=== PATIENT | female | born 1985 | race Caucasian/White ===

== ENCOUNTER 2016-12-15 16:58 | Emergency (ER) | payer MEDICARE, OTHER ==
[~2016-12-15] VITALS: Ht 175.3 cm; Wt 126.0 kg
[~2016-12-15 16:58] MED LIST: AMLO10TA2 PO; MACR100C2 PO; METO50TA PO
[2016-12-15 17:11] VITALS: BP 161/108; PULSE 94; RESP 16; TEMP 99; O2SAT 97
[2016-12-15] MEDS ORDERED: LOSA25TA PO (17:43)
--- NOTE | 2016-12-15 17:44 | PD ---
HPI . breast pain Chief Complaint: Bleeding Time Seen by Provider: 17:40 Travel History International Travel<30 days: No Contact w/Intl Traveler<30days: No Traveled to known affect area: No History of Present Illness HPI Patient presents with a several week history of breast pain now bleeding from her nipple. She states that she does have an appointment to see her doctor in a week. PFSH Past Medical History Hx Anticoagulant Therapy: No Arthritis: No Asthma: Yes Blood Disorders: No Anxiety: Yes Heart Rhythm Problems: Yes Cancer: No Cardiac Catheterization: No Cardiovascular Problems: Yes High Cholesterol: No Chest Pain: Yes Congestive Heart Failure: No Cerebrovascular Accident: No Diabetes: No Diminished Hearing: No Endocrine: Yes (SOME THYROID ISSUES) Gastrointestinal Disorders: No Genitourinary: Yes (CHRONIC KIDNEY INFECTIONS) Headaches: No Hypertension: Yes Immune Disorder: No Implanted Vascular Access Dvce: No Kidney Stones: Yes Musculoskeletal: No Neurologic: Yes Psychiatric: No Reproductive: Yes (IRREGULAR PERIODS) Respiratory: Yes (ASTHMA CHILD) Immunizations Current: Yes Migraines: Yes Pneumonia: Yes Seizures: No Thyroid Disease: Yes (HYPOTHYROIDISM/NOT ON MEDICATION) Tetanus Vaccination: < 5 Years ?: Not LMP: UNKNOWN Menopausal: No : 0 Para: 0 Miscarriage: 0 Ovarian Cysts: Yes (has PCOD) Past Surgical History Abdominal Surgery: Yes (PART OF RT KIDNEY REMOVED 1997- for PCKD) Cardiac Surgery: Yes (MITRAL VALVE REPAIR) Coronary Artery Bypass Graft: Yes (CABG X1 1985 OR 1986?) Genitourinary Surgery: Yes (PARTIAL NEPHRECTOMY RIGHT, URETERS REIMPLANTED) Gynecologic Surgery: Yes (RIGHT TOP LOBE OF KIDNEY REMOVED) Valve Replacement: Yes (2 OPEN HEARTS FOR VALVE SURGERY AGE 2 months) Other Surgery: Yes (RIGHT TOP LOBE OF KIDNEY REMOVED) Family History Family Myocardial Infarction: Yes (FATHER) Family Hypercholesterolemia: Yes (FATHER) Social History Alcohol Use: No Tobacco Use: No Substance Use: No Allergies-Medications (Allergen,Severity, Reaction): Coded Allergies: Penicillin (Verified Allergy, Intermediate, HIVES, 12/15/16) Reported Meds & Prescriptions Reported Meds & Active Scripts Active Amlodipine (Amlodipine Besylate) 10 Mg Tab 10 Mg PO DAILY Reported Macrobid (Nitrofurantoin Monoh/Nitrofur Macro) 100 Mg Cap 50 Mg PO DAILY Metoprolol Tartrate 50 Mg Tab 50 Mg PO BID Review of Systems Except as stated in HPI: all other systems reviewed are Neg General / Constitutional: No: Fever, Chills Skin: Positive Breast Tenderness, Positive Other (bleeding from the left nipple ) Physical Exam Narrative GENERAL: Awake and alert and in no acute distress. SKIN: Warm and dry. BREAST: The patient has diffuse left breast tenderness but no mass palpable. No skin changes. She does have scant blood from the nipple. CARDIOVASCULAR: Regular rate and rhythm. RESPIRATORY: No accessory muscle use. MUSCULOSKELETAL: No obvious deformities. No edema. NEUROLOGICAL: Awake and alert. No obvious cranial nerve deficits. Motor grossly within normal limits. Normal speech. PSYCHIATRIC: Appropriate mood and affect; insight and judgment normal. Data Data Last Documented VS Vital Signs Date Time Temp Pulse Resp B/P Pulse Ox O2 Delivery O2 Flow Rate FiO2 12/15/16 17:23 Room Air 12/15/16 17:11 99.0 94 16 161/108 97 MDM Medical Decision Making Medical Screen Exam Complete: Yes Emergency Medical Condition: Yes Differential Diagnosis Differential diagnosis includes mastitis, fibrocystic disease, cancer Narrative Course Patient presents with left breast pain for several weeks now with bleeding from her nipple. I have advised the patient to use warm compresses, Tylenol, Advil or Aleve as needed for pain and follow-up with her primary care provider as scheduled. I have explained to the patient that she will need a mammogram which we cannot do in the emergency department. Diagnosis Primary Impression: Breast pain, left Additional Instructions: Follow-up with her primary care provider as scheduled. Warm compresses to the area. Advil or Aleve as needed for discomfort. Disposition: 01 DISCHARGE HOME Condition: Stable Ophelia Garcia MD Dec 15, 2016 17:44
== END 2016-12-15 18:05 | disposition home or self-care (01) ==
LOC: PHED 16:58
DX: N64.4 Mastodynia (principal); J45.909 Unspecified asthma, uncomplicated; F41.9 Anxiety disorder, unspecified; I10 Essential (primary) hypertension; E28.2 Polycystic ovarian syndrome; Z95.1 Presence of aortocoronary bypass graft; Z95.2 Presence of prosthetic heart valve; Z88.0 Allergy status to penicillin
CPT/HCPCS: 99283

== ENCOUNTER 2017-03-11 22:59 | Emergency (ER) | payer MEDICARE, OTHER ==
[~2017-03-11] VITALS: Ht 175.3 cm; Wt 127.3 kg
[~2017-03-11 22:59] MED LIST changes: +LOSA25TA PO; -MACR100C2 PO
[2017-03-11 23:13] VITALS: BP 196/120; PULSE 98; RESP 14; TEMP 98.6; O2SAT 98
--- NOTE | 2017-03-12 00:15 | PD ---
HPI Chief Complaint: Injury Time Seen by Provider: 00:12 Travel History International Travel<30 days: No Contact w/Intl Traveler<30days: No Traveled to known affect area: No History of Present Illness HPI The patient is a 31-year-old female that complains of right knee pain for 4 days. She states she fell onto a pit at an obstacle course which was full of foam rubber but is struggling to get out of the. She thinks she might have twisted her knee. She does not remember how she twisted her knee. She complains of joint line pain medially and laterally over the right knee. She states it is highly unlikely that she is . The patient cannot take Motrin because of renal insufficiency -- stage III. PFSH Past Medical History Hx Anticoagulant Therapy: No Arthritis: No Asthma: Yes Blood Disorders: No Anxiety: Yes Heart Rhythm Problems: Yes Cancer: No Cardiac Catheterization: No Cardiovascular Problems: Yes High Cholesterol: No Chest Pain: Yes Congestive Heart Failure: No Cerebrovascular Accident: No Diabetes: No Diminished Hearing: No Endocrine: Yes (SOME THYROID ISSUES) Gastrointestinal Disorders: No Genitourinary: Yes (CHRONIC KIDNEY INFECTIONS) Headaches: No Hypertension: Yes Immune Disorder: No Implanted Vascular Access Dvce: No Kidney Stones: Yes Musculoskeletal: No Neurologic: Yes Psychiatric: No Reproductive: Yes (IRREGULAR PERIODS) Respiratory: Yes (ASTHMA CHILD) Immunizations Current: Yes Migraines: Yes Pneumonia: Yes Seizures: No Thyroid Disease: Yes (HYPOTHYROIDISM/NOT ON MEDICATION) Tetanus Vaccination: > 5 Years Influenza Vaccination: No ?: Not Menopausal: No : 0 Para: 0 Miscarriage: 0 Ovarian Cysts: Yes (has PCOS) Past Surgical History Abdominal Surgery: Yes (PART OF RT KIDNEY REMOVED 1997- for PCKD) Cardiac Surgery: Yes (MITRAL VALVE REPAIR) Coronary Artery Bypass Graft: Yes (CABG X1 1985 OR 1986?) Genitourinary Surgery: Yes (PARTIAL NEPHRECTOMY RIGHT, URETERS REIMPLANTED) Gynecologic Surgery: Yes (RIGHT TOP LOBE OF KIDNEY REMOVED) Valve Replacement: Yes (2 OPEN HEARTS FOR VALVE SURGERY AGE 2 months) Other Surgery: Yes (RIGHT TOP LOBE OF KIDNEY REMOVED) Family History Family Myocardial Infarction: Yes (FATHER) Family Hypercholesterolemia: Yes (FATHER) Social History Alcohol Use: No Tobacco Use: No Substance Use: No Allergies-Medications (Allergen,Severity, Reaction): Coded Allergies: Penicillin (Verified Allergy, Intermediate, HIVES, 03/12/17) Toradol (Verified Adverse Reaction, Severe, 03/12/17) KIDNEY FAILURE Reported Meds & Prescriptions Reported Meds & Active Scripts Active Amlodipine (Amlodipine Besylate) 10 Mg Tab 10 Mg PO DAILY Reported Losartan (Losartan Potassium) 25 Mg Tab 25 Mg PO DAILY Metoprolol Tartrate 50 Mg Tab 50 Mg PO BID Review of Systems Except as stated in HPI: all other systems reviewed are Neg Physical Exam Narrative GENERAL: The patient is obese, alert, oriented 3 in moderate apparent distress with her right knee pain. SKIN: Focused skin assessment warm/dry. HEAD: Atraumatic. Normocephalic. EYES: Pupils equal and round. No scleral icterus. No injection or drainage. ENT: No nasal bleeding or discharge. Mucous membranes pink and moist. NECK: Trachea midline. No JVD. CARDIOVASCULAR: Regular rate and rhythm. No murmur appreciated. RESPIRATORY: No accessory muscle use. Clear to auscultation. Breath sounds equal bilaterally. GASTROINTESTINAL: Abdomen soft, non-tender, nondistended. Hepatic and splenic margins not palpable. MUSCULOSKELETAL: No obvious deformities. No clubbing. No cyanosis. No edema. The patient has joint line tenderness all around the knee. It feels like she does have some swelling in the joint. No deformity is noted. No patellar tenderness is noted. Collaterals, drawer, Jessica all intact ligaments. NEUROLOGICAL: Awake and alert. No obvious cranial nerve deficits. Motor grossly within normal limits. Normal speech. PSYCHIATRIC: Appropriate mood and affect; insight and judgment normal. Data Data Last Documented VS Vital Signs Date Time Temp Pulse Resp B/P Pulse Ox O2 Delivery O2 Flow Rate FiO2 03/11/17 23:35 98 18 97 Room Air 03/11/17 23:13 98.6 196/120 Orders Knee, Complete (4vws) (03/11/17 ) Ed Urine Pregnancytest Poc (03/11/17 23:38) [facility] Medical Decision Making Medical Screen Exam Complete: Yes Emergency Medical Condition: Yes Medical Record Reviewed: Yes Interpretation(s) The [id number] urine test is negative. X-rays of the right knee show knee effusion but no fracture. Differential Diagnosis Cartilage tear, ligament tear, fracture knee, contusion knee joint effusion knee Narrative Course The patient has an effusion of the right knee. I find no evidence for ligament instability but she may have a cartilage tear or some other internal derangement. Plan: She is to follow-up with an orthopedic physician and is given crutches and told to rest and take the weight off the knee. Because the patient cannot take nonsteroidal anti-inflammatories because of her renal insufficiency she will be given Lortab 5 for pain. She will be given crutches and an [place] bandage. Diagnosis Primary Impression: Effusion of knee joint right Additional Instructions: As we discussed, take the weight off the right knee as best you can. This will probably mean resting in bed with the knee slightly flexed. Follow-up with orthopedics, call tomorrow to set up an appointment. Med/Other Pt SpecificInfo: Prescription(s) given Scripts Hydrocodone-Acetaminophen (Lortab)7.5-325 Mg Tab1 Tab PO Q4H PRN (PAIN) #30 TAB Ref 0 Prov:Luis Enrique Francois MD 03/12/17 Disposition: 01 DISCHARGE HOME Condition: Stable Luis Enrique Francois MD Mar 12, 2017 00:15
--- NOTE | 2017-03-12 00:55 | RADRPT ---
EXAM DATE/TIME: 03/12/2017 00:16 [facility] COMPARISON: No previous studies available for comparison. INDICATIONS : Right knee pain after fall and twisting knee on trampoline. MEDICAL HISTORY : None. SURGICAL HISTORY : None. ENCOUNTER: Initial ACUITY: 4 - 6 days PAIN SCORE: 7/10 LOCATION: Right knee FINDINGS: Four view examination of the right knee demonstrates no evidence of fracture or dislocation. Bony mi neralization is normal. The articular surfaces are intact. There is fullness in the suprapatellar r egion suggesting effusion. No radiopaque foreign body seen. CONCLUSION: Probable knee effusion. No fracture seen. Gilberto Turner MD on March 12, 2017 at 0:52 Board Certified Radiologist. This report was verified electronically.
[2017-03-12] MEDS ORDERED: HYDR-3534 PO (01:03)
[2017-03-12] MEDS ORDERED: ACETAMINOPHEN/HYDROcodone 325 MG/7.5 MG TAB PO ONE (01:15)
== END 2017-03-12 01:49 | disposition home or self-care (01) ==
LOC: PHED 22:59
DX: M25.461 Effusion, right knee (principal); N28.9 Disorder of kidney and ureter, unspecified; I10 Essential (primary) hypertension; E03.9 Hypothyroidism, unspecified
CPT/HCPCS: 73564; 84703; 99283

== ENCOUNTER 2017-06-15 17:45 | Emergency (ER) | payer MEDICARE, OTHER ==
[~2017-06-15] VITALS: Ht 175.3 cm; Wt 129.0 kg
[~2017-06-15 17:45] MED LIST changes: +HYDR-3534 PO
[2017-06-15 18:10] VITALS: BP 206/128; PULSE 97; RESP 16; TEMP 99; O2SAT 99
[2017-06-15 18:15] LABS: BLOOD, URINE TRACE (NEG); GLUCOSE,URINE NEG (NEG); KETONE, URINE NEG (NEG); NITRITE,URINE NEG (NEG)
[2017-06-15 18:20] LABS: URINE COLOR YELLOW (YELLW/STRAW)
[2017-06-15 18:21] LABS: BACTERIA, URINE FEW /hpf; COMMENT (UR) CULTURE INDICATED; CULTURE IF INDICATED CULTURE INDICATED; RBC, URINE 0-3 /hpf (0-3); SQUAMOUS EPITHELIAL CELL URINE 0-5 /hpf (0-5)
[2017-06-15] MEDS ORDERED: CIPR500T2 PO (19:07)
[2017-06-15] MEDS ORDERED: PHEN0.4T PO (19:07)
[2017-06-15] MEDS ORDERED: ZOFR4TAB PO (19:07)
[2017-06-15] MEDS ORDERED: CEPH-460 PO (19:09)
--- NOTE | 2017-06-15 19:09 | PD ---
HPI Chief Complaint: Complaint Time Seen by Provider: 18:51 Travel History International Travel<30 days: No Contact w/Intl Traveler<30days: No Traveled to known affect area: No History of Present Illness HPI Patient 31-year-old female with a history of polycystic kidney disease polycystic ovary disease presents emergency department for evaluation of left flank pain and dysuria for the past few days which is gradually worsening, not associated with any fevers nausea vomiting diarrhea or constipation. PFSH Past Medical History Hx Anticoagulant Therapy: No Arthritis: No Asthma: Yes Blood Disorders: No Anxiety: Yes Heart Rhythm Problems: Yes Cancer: No Cardiac Catheterization: No Cardiovascular Problems: Yes High Cholesterol: No Chest Pain: Yes Congestive Heart Failure: No Cerebrovascular Accident: No Diabetes: No Diminished Hearing: No Endocrine: Yes (SOME THYROID ISSUES) Gastrointestinal Disorders: No Genitourinary: Yes (CHRONIC KIDNEY INFECTIONS) Headaches: No Hypertension: Yes Immune Disorder: No Implanted Vascular Access Dvce: No Kidney Stones: Yes Musculoskeletal: No Neurologic: Yes Psychiatric: No Reproductive: Yes (IRREGULAR PERIODS) Respiratory: Yes (ASTHMA CHILD) Immunizations Current: Yes Migraines: Yes Pneumonia: Yes Seizures: No Thyroid Disease: Yes (HYPOTHYROIDISM/NOT ON MEDICATION) ?: Not Menopausal: No : 0 Para: 0 Miscarriage: 0 Ovarian Cysts: Yes (has PCOS) Past Surgical History Abdominal Surgery: Yes (PART OF RT KIDNEY REMOVED 1997- for PCKD) Cardiac Surgery: Yes (MITRAL VALVE REPAIR) Coronary Artery Bypass Graft: Yes (CABG X1 1985 OR 1986?) Genitourinary Surgery: Yes (PARTIAL NEPHRECTOMY RIGHT, URETERS REIMPLANTED) Gynecologic Surgery: Yes (RIGHT TOP LOBE OF KIDNEY REMOVED) Valve Replacement: Yes (2 OPEN HEARTS FOR VALVE SURGERY AGE 2 months) Other Surgery: Yes (RIGHT TOP LOBE OF KIDNEY REMOVED) Family History Family Myocardial Infarction: Yes (FATHER) Family Hypercholesterolemia: Yes (FATHER) Social History Alcohol Use: No Tobacco Use: No Substance Use: No Allergies-Medications (Allergen,Severity, Reaction): Coded Allergies: penicillin G (Unverified Allergy, Intermediate, HIVES, 06/15/17) ketorolac (Unverified Adverse Reaction, Severe, 06/15/17) KIDNEY FAILURE Reported Meds & Prescriptions Reported Meds & Active Scripts Active Keflex (Cephalexin) 500 Mg Capsule 500 Mg PO Q6H 7 Days Zofran (Ondansetron HCl) 4 Mg Tab 4 Mg PO Q6HR PRN Pyridium (Phenazopyridine HCl) 100 Mg Tab 100 Mg PO Q8H PRN Lortab (Hydrocodone-Acetaminophen) 7.5-325 Mg Tab 1 Tab PO Q4H PRN Amlodipine (Amlodipine Besylate) 10 Mg Tab 10 Mg PO DAILY Reported Losartan (Losartan Potassium) 25 Mg Tab 25 Mg PO DAILY Metoprolol Tartrate 50 Mg Tab 50 Mg PO BID Review of Systems Except as stated in HPI: all other systems reviewed are Neg Physical Exam Narrative GENERAL: Well-developed well-nourished, obese in no distress. SKIN: Focused skin assessment warm/dry. HEAD: Atraumatic. Normocephalic. EYES: Pupils equal and round. No scleral icterus. No injection or drainage. ENT: No nasal bleeding or discharge. Mucous membranes pink and moist. NECK: Trachea midline. No JVD. CARDIOVASCULAR: Regular rate and rhythm. No murmur appreciated. RESPIRATORY: No accessory muscle use. Clear to auscultation. Breath sounds equal bilaterally. GASTROINTESTINAL: Abdomen soft, non-tender, nondistended. Hepatic and splenic margins not palpable. Positive left-sided CVA tenderness. MUSCULOSKELETAL: No obvious deformities. No clubbing. No cyanosis. No edema. NEUROLOGICAL: Awake and alert. No obvious cranial nerve deficits. Motor grossly within normal limits. Normal speech. PSYCHIATRIC: Appropriate mood and affect; insight and judgment normal. Data Data Last Documented VS Vital Signs Date Time Temp Pulse Resp B/P (MAP) Pulse Ox O2 Delivery O2 Flow Rate FiO2 06/15/17 19:35 93 14 188/110 (136) 98 06/15/17 18:10 99.0 Orders Orders Urinalysis - C+S If Indicated (06/15/17 17:49) Ed Urine Pregnancytest Poc (06/15/17 17:49) Urine Culture (06/15/17 17:18) Labs Laboratory Tests Test 06/15/17 17:18 Urine Color YELLOW Urine Turbidity CLEAR Urine pH 6.0 Urine Specific [place] 1.013 Urine Protein 100 mg/dL Urine Glucose (UA) NEG mg/dL Urine Ketones NEG mg/dL Urine Occult Blood TRACE Urine Nitrite NEG Urine Bilirubin NEG Urine Leukocyte Esterase TRACE Urine RBC 0-3 /hpf Urine WBC 9-14 /hpf Urine WBC Clumps FEW Urine Squamous Epithelial Cells 0-5 /hpf Urine Bacteria FEW /hpf Microscopic Urinalysis Comment CULTURE INDICATED MDM Medical Decision Making Medical Screen Exam Complete: Yes Emergency Medical Condition: Yes Differential Diagnosis UTI, pyelonephritis, sepsis unlikely. Narrative Course Patient roomed in emergency department, has pyelonephritis by physical exam and UA. Vital signs are reassuring. No indication further workup as the patient appears quite well in no distress. We'll place time. Antibiotic's Pyridium at her request. Zofran. Discussed signs symptoms that should prompt return to ED , she is stable for discharge. Diagnosis Primary Impression: Pyelonephritis Med/Other Pt SpecificInfo: Prescription(s) given Scripts Cephalexin (Keflex) 500 Mg Capsule 500 MG PO Q6H for Infection for 7 Days, #28 CAP 0 Refills Prov: Christian Stearns MD 06/15/17 Ondansetron (Zofran) 4 Mg Tab 4 MG PO Q6HR Y for NAUSEA OR VOMITING, #20 TAB 0 Refills Prov: Christian Stearns MD 06/15/17 Phenazopyridine (Pyridium) 100 Mg Tab 100 MG PO Q8H Y for DYSURIA, #20 TAB 0 Refills Prov: Christian Stearns MD 06/15/17 Disposition: 01 DISCHARGE HOME Condition: Stable Christian Stearns MD Jun 15, 2017 19:09
[2017-06-15 19:35] VITALS: BP 188/110
== END 2017-06-15 19:39 | disposition home or self-care (01) ==
LOC: PHED 17:45
DX: N12 Tubulo-interstitial nephritis, not specified as acute or chronic (principal); E03.9 Hypothyroidism, unspecified; E28.2 Polycystic ovarian syndrome; I10 Essential (primary) hypertension; Z88.0 Allergy status to penicillin; Z95.2 Presence of prosthetic heart valve; Z95.1 Presence of aortocoronary bypass graft; Q61.3 Polycystic kidney, unspecified
CPT/HCPCS: 81001; 84703; 87086; 99284

== ENCOUNTER 2018-01-02 10:26 | Observation (INO) | payer MEDICARE, OTHER ==
[~2018-01-02] VITALS: Ht 175.3 cm; Wt 131.8 kg
[2018-01-02] VITALS (13 sets, daily range): BP systolic 147–238; BP diastolic 76–111; PULSE 67–120; RESP 14–21; TEMP 97.3–99; O2SAT 93–97
[2018-01-02] MEDS: METOPROLOL TARTRATE 100 MG TAB PO SCH
[~2018-01-02 10:26] MED LIST changes: +CEPH-460 PO; +PHEN0.4T PO; +ZOFR4TAB PO
[2018-01-02] MEDS ORDERED: METO100T PO (10:58)
[2018-01-02] MEDS ORDERED: LOSA50TA PO (10:58)
--- NOTE | 2018-01-02 11:06 | PD ---
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 Said pain is pressure like and has left arm numbness associated with it. Pain is constant, nonradiating and associated with nausea, sob, vomiting. No exacerbating or alleviating factors. 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 Granado and had a stress test 6 months ago that showed some problem with her conduction and she is going to get follow up with that. Said she was told she had heart attack in 2016 but never had a cardiac cath. Took her blood pressure medication this morning but BP is still very high. Denies any abdominal pain, focal weakness or numbness, fever. Occasional cough. PFSH Past Medical History Hx Anticoagulant Therapy: No Arthritis: No Asthma: Yes Blood Disorders: No Anxiety: Yes Heart Rhythm Problems: Yes Cancer: No Cardiac Catheterization: No Cardiovascular Problems: Yes High Cholesterol: No Chest Pain: Yes Congestive Heart Failure: No Cerebrovascular Accident: No Diabetes: No Diminished Hearing: No Endocrine: Yes (SOME THYROID ISSUES) Gastrointestinal Disorders: No Genitourinary: Yes (CHRONIC KIDNEY INFECTIONS) Headaches: No Hypertension: Yes Immune Disorder: No Implanted Vascular Access Dvce: No Kidney Stones: Yes Musculoskeletal: No Neurologic: Yes Psychiatric: No Reproductive: Yes (IRREGULAR PERIODS) Respiratory: Yes (ASTHMA CHILD) Immunizations Current: Yes Migraines: Yes Pneumonia: Yes Seizures: No Thyroid Disease: Yes (HYPOTHYROIDISM/NOT ON MEDICATION) ?: Not LMP: 10/2017 Menopausal: No : 0 Para: 0 Miscarriage: 0 Ovarian Cysts: Yes (has PCOS) Past Surgical History Abdominal Surgery: Yes (PART OF RT KIDNEY REMOVED 1997- for PCKD) Cardiac Surgery: Yes (MITRAL VALVE REPAIR) Coronary Artery Bypass Graft: Yes (CABG X1 1985 OR 1986?) Genitourinary Surgery: Yes (PARTIAL NEPHRECTOMY RIGHT, URETERS REIMPLANTED) Gynecologic Surgery: Yes (RIGHT TOP LOBE OF KIDNEY REMOVED) Valve Replacement: Yes (2 OPEN HEARTS FOR VALVE SURGERY AGE 2 months) Other Surgery: Yes (RIGHT TOP LOBE OF KIDNEY REMOVED) Family History Family Hypercholesterolemia: Yes (FATHER) Social History Alcohol Use: No Tobacco Use: No Substance Use: No Allergies-Medications (Allergen,Severity, Reaction): Coded Allergies: penicillin G (Unverified Allergy, Intermediate, HIVES, 01/02/18) ketorolac (Unverified Adverse Reaction, Severe, 01/02/18) KIDNEY FAILURE Reported Meds & Prescriptions Reported Meds & Active Scripts Active Amlodipine (Amlodipine Besylate) 10 Mg Tab 10 Mg PO DAILY Reported Losartan (Losartan Potassium) 50 Mg Tab 50 Mg PO DAILY Metoprolol Tartrate 100 Mg Tab 100 Mg PO BID Review of Systems Except as stated in HPI: all other systems reviewed are Neg Physical Exam Narrative GENERAL: 32yo F in mild distress. SKIN: Focused skin assessment warm/dry. HEAD: Atraumatic. Normocephalic. EYES: Pupils equal and round. No scleral icterus. No injection or drainage. ENT: No nasal bleeding or discharge. Mucous membranes pink and moist. NECK: Trachea midline. No JVD. CARDIOVASCULAR: Regular rate and rhythm. No murmur appreciated. RESPIRATORY: No accessory muscle use. Mild end expiratory wheezing bilaterally. GASTROINTESTINAL: Abdomen soft, non-tender, nondistended. Hepatic and splenic margins not palpable. MUSCULOSKELETAL: No obvious deformities. No clubbing. No cyanosis. No edema. NEUROLOGICAL: Awake and alert. No obvious cranial nerve deficits. Motor grossly within normal limits. Normal speech. PSYCHIATRIC: Appropriate mood and affect; insight and judgment normal. Data Data Last Documented VS Vital Signs Date Time Temp Pulse Resp B/P (MAP) Pulse Ox O2 Delivery O2 Flow Rate FiO2 01/02/18 14:13 106 15 175/76 (109) 96 Room Air 01/02/18 12:07 2.00 01/02/18 10:44 98.5 Orders Orders Basic Metabolic Panel (Bmp) (01/02/18 10:55) Complete Blood Count With Diff (01/02/18 10:55) D-Dimer (01/02/18 10:55) Magnesium (Mg) (01/02/18 10:55) Prothrombin Time / Inr (Pt) (01/02/18 10:55) Act Partial Throm Time (Ptt) (01/02/18 10:55) Troponin I (01/02/18 10:55) Chest, Single Ap (01/02/18 10:55) Nitroglycerin Sl (Nitrostat Sl) (01/02/18 11:00) Ondansetron Inj (Zofran Inj) (01/02/18 11:45) Prednisone (Deltasone) (01/02/18 13:00) Albuterol-Ipratropium Neb (Duoneb Neb) (01/02/18 13:00) Morphine Inj (Morphine Inj) (01/02/18 13:15) Admit Order (Ed Use Only) (01/02/18 14:15) Labs Laboratory Tests Test 01/02/18 11:15 White Blood Count 8.6 TH/MM3 Red Blood Count 4.87 MIL/MM3 Hemoglobin 13.9 GM/DL Hematocrit 41.2 % Mean Corpuscular Volume 84.7 FL Mean Corpuscular Hemoglobin 28.5 PG Mean Corpuscular Hemoglobin Concent 33.7 % Red Cell Distribution Width 14.5 % Platelet Count 117 TH/MM3 Mean Platelet Volume 9.2 FL Neutrophils (%) (Auto) 75.1 % Lymphocytes (%) (Auto) 16.9 % Monocytes (%) (Auto) 6.6 % Eosinophils (%) (Auto) 1.0 % Basophils (%) (Auto) 0.4 % Neutrophils # (Auto) 6.5 TH/MM3 Lymphocytes # (Auto) 1.5 TH/MM3 Monocytes # (Auto) 0.6 TH/MM3 Eosinophils # (Auto) 0.1 TH/MM3 Basophils # (Auto) 0.0 TH/MM3 CBC Comment DIFF FINAL Differential Comment Prothrombin Time 10.2 SEC Prothromb Time International Ratio 1.0 RATIO Activated Partial Thromboplast Time 26.6 SEC D-Dimer Quantitative (PE/DVT) 0.21 MG/L FEU Blood Urea Nitrogen 20 MG/DL Creatinine 1.62 MG/DL Random Glucose 121 MG/DL Calcium Level 8.9 MG/DL Magnesium Level 1.9 MG/DL Sodium Level 143 MEQ/L Potassium Level 3.8 MEQ/L Chloride Level 109 MEQ/L Carbon Dioxide Level 25.5 MEQ/L Anion Gap 9 MEQ/L Estimat Glomerular Filtration Rate 37 ML/MIN Troponin I LESS THAN 0.02 NG/ML MDM Medical Decision Making Medical Screen Exam Complete: Yes Emergency Medical Condition: Yes Interpretation(s) EKG: Sinus tachycardia at 112bpm. RAD. Wide QRS. 1st AV block. Differential Diagnosis ACS vs. pneumonia vs. musculoskeletal pain Narrative Course 32yo F with left sided chest pain that started an hour ago. Labs reviewed, no leukocytosis. H/H normal. Mild thrombocytopenia at 117,000 which is at baseline. Troponin negative. BUN/creatinine mildly elevated from baseline at 20/1.62 from 17.20. Pt said she has CKD stage 3 so this is likely her baseline. CXR negative. D-dimer negative. Pt was initially very hypertensive but BP improved with nitroglycerin. Pt describes it as a pressure and still a 5 out of 10 right now. Discussed with pt's systems analyst Dr. rGanado who agrees with observation in chest pain center for serial EKG and cardiac enzymes and to call him for any questions or updates. Since pt is still in pain and pressure has improved, will give morphine 2gm IV and reevaluate. Pt also with end expiratory wheezing and a childhood history of asthma so given duonebs and prednisone. Pt feel better. Pt reevaluated at bedside and said she is no longer sob. Pt is still having pressure in chest. Diagnosis Primary Impression: Chest pain Qualified Codes: R07.9 - Chest pain, unspecified Additional Impression: Asthma exacerbation Qualified Codes: J45.901 - Unspecified asthma with (acute) exacerbation Admitting Information Admitting Physician Requests: Observation Med/Other Pt SpecificInfo: Prescription(s) given Scripts Albuterol 18 GM Inh (Ventolin Hfa 18 GM Inh) 90 Mcg/Act Aer 2 PUFF INH Q4H Y for SHORTNESS OF BREATH, #1 INHALER 0 Refills Prov: Dipti Bella DO 01/02/18 Prednisone (Prednisone) 20 Mg Tab 40 MG PO DAILY for 5 Days, #10 TAB 0 Refills Take 40 mg (2 tablets) daily for 5 days Prov: Dipti Bella DO 01/02/18 Dipti Bella DO Jan 02, 2018 11:06
[2018-01-02] MEDS: NITROGLYCERIN 0.4 MG SL 25 TABS/BTL SL SCH ×3 (11:10→11:38)
[2018-01-02] MEDS ORDERED: ONDANSETRON HCL 4 MG/2 ML VIAL IV PUSH ONE (11:45)
--- NOTE | 2018-01-02 11:47 | RADRPT ---
EXAM DATE/TIME: 01/02/2018 11:22 [place] COMPARISON: CHEST SINGLE AP, July 26, 2016, 9:53. INDICATIONS : Chest pressure and pain radiating down left arm with vomiting. MEDICAL HISTORY : Childhood asthma. Leaky mitral valve. SURGICAL HISTORY : Surgical repair for childhood heart defect. ENCOUNTER: Initial ACUITY: 1 day PAIN SCORE: 6/10 LOCATION: Left chest FINDINGS: A single view of the chest demonstrates the lungs to be symmetrically aerated without evidence of mas s, infiltrate or effusion. The cardiomediastinal contours are unremarkable. Osseous structures are intact. CONCLUSION: No acute disease. Te Cunningham MD on January 02, 2018 at 11:44 Board Certified Radiologist. This report was verified electronically.
[2018-01-02 12:01] LABS: WHITE BLOOD COUNT 8.6 TH/MM3 (4.0-11.0)
[2018-01-02 12:02] LABS: AUTOMATED NEUTROPHIL # 6.5 TH/MM3 (1.8-7.7); BASOPHIL % 0.4 % (0.0-2.0); EOSINOPHIL # 0.1 TH/MM3 (0-0.4); HEMATOCRIT 41.2 % (35.0-46.0); HEMOGLOBIN 13.9 GM/DL (11.6-15.3); LYMPH % 16.9 % (9.0-44.0); LYMPHOCYTE # 1.5 TH/MM3 (1.0-4.8); MEAN CELL VOLUME 84.7 FL (80.0-100.0); MEAN CORPUSCULAR HEMOGLOBIN 28.5 PG (27.0-34.0); MEAN CORPUSCULAR HGB CONC 33.7 % (32.0-36.0); MEAN PLATELET VOLUME 9.2 FL (7.0-11.0); MONO % 6.6 % (0.0-8.0); MONOCYTE # 0.6 TH/MM3 (0-0.9); NEUT % 75.1 % (16.0-70.0); PLATELET COUNT 117 TH/MM3 (150-450); RED BLOOD COUNT 4.87 MIL/MM3 (4.00-5.30); RED CELL DISTRIBUTION WIDTH 14.5 % (11.6-17.2)
[2018-01-02 12:13] LABS: PROTHROMBIN TIME - PATIENT 10.2 SEC (9.8-11.6)
[2018-01-02 12:15] LABS: D-DIMER 0.21 MG/L FEU (0.00-0.50)
[2018-01-02 12:31] LABS: BICARBONATE 25.5 MEQ/L (21.0-32.0); BLOOD UREA NITROGEN 20 MG/DL (7-18); CALCIUM 8.9 MG/DL (8.5-10.1); CHLORIDE 109 MEQ/L (98-107); CREATININE 1.62 MG/DL (0.50-1.00); GLOMERULAR FILTRATION RATE 37 ML/MIN (>89); GLUCOSE,RANDOM 121 MG/DL (74-106); MAGNESIUM 1.9 MG/DL (1.5-2.5); SODIUM (NA) 143 MEQ/L (136-145)
[2018-01-02 12:35] LABS: TROPONIN I LESS THAN 0.02 NG/ML (0.02-0.05)
[2018-01-02] MEDS ORDERED: predniSONE 50 MG TAB PO ONE (13:00)
[2018-01-02] MEDS ORDERED: MORPHINE SULFATE 2 MG/ML SYRINGE IV PUSH ONE ×2 (13:15→17:30)
[2018-01-02] MEDS: RESP: ALBUTEROL 2.5 MG/IPRATROPIUM 0.5 MG NEB (SCH) INH (13:16)
[2018-01-02] MEDS ORDERED: PRED20 PO (14:19)
[2018-01-02] MEDS ORDERED: VENTAER INH (14:19)
[2018-01-02] MEDS ORDERED: ACETAMINOPHEN 500 MG CPLT PO PRN (15:00)
[2018-01-02] MEDS ORDERED: ONDANSETRON HCL 4 MG/2 ML VIAL IV PUSH PRN (15:00)
[2018-01-02] MEDS ORDERED: NITROGLYCERIN 0.4 MG SL 25 TABS/BTL SL PRN (15:00)
[2018-01-02] MEDS ORDERED: SODIUM CHLORIDE 0.9% FLUSH 10 ML FLUSH IV FLUSH PRN (15:00)
--- NOTE | 2018-01-02 15:24 | HHI.HP ---
HPI Primary Care Physician Austen Callahan M.D. Chief Complaint Chest pressure History of Present Illness 32 year old female with history of congenital heart mitral valve repair as presents to ER for further evaulation of chest pain. Onset this afternoon. Location substernal. Characterized as pressure. No radiation. Associated symptoms included nausea, 1 episode vomiting, shortness of breath, and diaphoresis. No known precipitating or relieving factors. Endorses similar episodes over the last 2 years approx. 8 times. Follows with her chief of pediatric urology in [place], [place] closely. Endorses recent nuclear testing within the last year reported to be unremarkable. Scheduled for CT coronary angiogram Thursday01/08/18 scheduled by her deflector operator in [place]. Endorses wearing a 30 day event monitor within the last year. No cardiac arrhythmias identified. Review of Systems General: No fatigue,weakness, fever, chills, recent illness, or change in appetite. Has been her general state of health. HEENT: No VILLA, no vision changes, no nasal congestion or drainage, no dysphasia CV: As stated above. No current chest pain or pressure. No palpitations or dizziness. RESP: No SOB, cough, wheeze. History of asthma as a child. GI: Nausea and vomiting resolved. No bowel changes. Unintentional weight gain of #90 in past year. : No dysuria, urgency, frequency. Chronic kidney disease, follows with a warper tender closely. EXT: No lower leg edema, no paraesthesias MS: No discomfort or change in ROM NEURO: No difficulty with balance, LOC, motor/sensory deficits PSYCH: No anxiety, depression SKIN: No rashes, no concerning lesions Past Family Social History Allergies: Coded Allergies: penicillin G (Unverified Allergy, Intermediate, HIVES, 01/02/18) ketorolac (Unverified Adverse Reaction, Severe, 01/02/18) KIDNEY FAILURE Past Medical History Chronic kidney disease, polycystic ovarian disease, borderline diabetic, asthma (during childhood) Past Surgical History Mitral valve repair Reported Medications Reported Meds & Active Scripts Active Ventolin Hfa 18 GM Inh (Albuterol Sulfate) 90 Mcg/Act Aer 2 Puff INH Q4H PRN Prednisone 20 Mg Tab 40 Mg PO DAILY 5 Days Take 40 mg (2 tablets) daily for 5 days Amlodipine (Amlodipine Besylate) 10 Mg Tab 10 Mg PO DAILY Losartan (Losartan Potassium) 50 Mg Tab 50 Mg PO DAILY Metoprolol Tartrate 100 Mg Tab 100 Mg PO BID Active Ordered Medications Current Medications Medications (Trade) Dose Ordered Sig/Steve Route Start Time Stop Time Status Last Admin (NS Flush) 2 ml UNSCH PRN IV FLUSH 01/02/18 15:00 (NS Flush) 2 ml BID IV FLUSH 01/02/18 21:00 (Tylenol) 500 mg Q4H PRN PO 01/02/18 15:00 (Zofran Inj) 4 mg Q6H PRN IV PUSH 01/02/18 15:00 (Nitrostat Sl) 0.4 mg Q5M PRN SL 01/02/18 15:00 (Aspirin) 325 mg DAILY PO 01/03/18 09:00 Family History Positive for early onset cardiovascular disease. Father age 48 myocardial infarction. Social History No known coronary artery disease, hypertension, or hyperlipidemia. Reports being a borderline diabetic. Lifelong nonsmoker. Engaged. Disabled. [facility] reported to be normal. Scheduled for CT coronary angiogram 01/08/18. Continue to follow her chief of pediatric urology in [place], [place]. Never had cardiac catheterization as an adult. Physical Exam Vital Signs Vital Signs Date Time Temp Pulse Resp B/P (MAP) Pulse Ox O2 Delivery O2 Flow Rate FiO2 01/02/18 14:13 106 15 175/76 (109) 96 Room Air 01/02/18 12:07 96 Nasal Cannula 2.00 01/02/18 12:06 94 147/83 (104) 01/02/18 11:41 106 20 151/81 (104) 94 Room Air 01/02/18 11:15 100 184/96 (125) 01/02/18 10:44 98.5 111 21 238/106 (150) 96 Nasal Cannula 2.00 01/02/18 10:28 99.0 120 20 184/111 (135) 97 Physical Exam GENERAL: Alert WN, WD, NAD, pleasant, obese female HEAD: NC, AT EYES: Sclera clear, conjunctiva without injection, pupils equal and round ENT: Mucous membranes pink and moist NECK: Supple, no masses, trachea midline CV: RRR, 1/6 systolic murmur, heard best during expiration, no rub, no gallop, no JVD, S1-S2 no S3-S4. No carotid or femoral bruits. Chest: Nontender with palpation RESP: Inspiratory and expiratory wheeze, rhonchi throughout. symmetrical chest rise, nonlabored, able to speak in full sentences ABD: Soft, NT, ND, no masses, positive bowel tones EXT: Pulses +2x4, no dependent edema MS: Normal tone x4 extremities, nontender, no obvious deformities, full range of motion NEURO: CN II through CN XII grossly intact, motor strength 5/5 PSYCH: A+O x3, pleasant affect, appropriate speech, mood, insight and judgment SKIN: Normal turgor, normal texture, no lesions, no rashes, tattoos Laboratory Laboratory Tests Test 01/02/18 11:15 White Blood Count 8.6 Red Blood Count 4.87 Hemoglobin 13.9 Hematocrit 41.2 Mean Corpuscular Volume 84.7 Mean Corpuscular Hemoglobin 28.5 Mean Corpuscular Hemoglobin Concent 33.7 Red Cell Distribution Width 14.5 Platelet Count 117 Mean Platelet Volume 9.2 Neutrophils (%) (Auto) 75.1 Lymphocytes (%) (Auto) 16.9 Monocytes (%) (Auto) 6.6 Eosinophils (%) (Auto) 1.0 Basophils (%) (Auto) 0.4 Neutrophils # (Auto) 6.5 Lymphocytes # (Auto) 1.5 Monocytes # (Auto) 0.6 Eosinophils # (Auto) 0.1 Basophils # (Auto) 0.0 CBC Comment DIFF FINAL Differential Comment Prothrombin Time 10.2 Prothromb Time International Ratio 1.0 Activated Partial Thromboplast Time 26.6 D-Dimer Quantitative (PE/DVT) 0.21 Blood Urea Nitrogen 20 Creatinine 1.62 Random Glucose 121 Calcium Level 8.9 Magnesium Level 1.9 Sodium Level 143 Potassium Level 3.8 Chloride Level 109 Carbon Dioxide Level 25.5 Anion Gap 9 Estimat Glomerular Filtration Rate 37 Troponin I LESS THAN 0.02 Result Diagram: 01/02/18 1115 01/02/18 1115 Imaging Last 48 hours Impressions Chest X-Ray 01/02/18 1055 Signed Impressions: Service Date/Time: Tuesday, January 02, 2018 11:22 - CONCLUSION: No acute disease. Te Cunningham MD Course EKG NSR, left axis, R BBB, diffuse T wave changes (T waves changes seen on previous EKG records) Caprini VTE Risk Assessment Caprini VTE Risk Assessment: No/Low Risk (score <= 1) Caprini Risk Assessment Model Point Value = 1 Point Value = 2 Point Value = 3 Point Value = 5 Age 41-60 Minor surgery BMI > 25 kg/m2 Swollen legs Varicose veins or History of unexplained or recurrent spontaneous Oral contraceptives or hormone replacement Sepsis (< 1 month) Serious lung disease, including pneumonia (< 1 month) Abnormal pulmonary function Acute myocardial infarction Congestive heart failure (< 1 month) History of inflammatory bowel disease Medical patient at bed rest Age 61-74 Arthroscopic surgery Major open surgery (> 45 min) Laparoscopic surgery (> 45 min) Malignancy Confined to bed (> 72 hours) Immobilizing plaster cast Central venous access Age >= 75 History of VTE Family history of VTE Factor V Leiden Prothrombin [id number] Lupus anticoagulant Anticardiolipin antibodies Elevated serum homocysteine Heparin-induced thrombocytopenia Other congenital or acquired thrombophilia Stroke (< 1 month) Elective arthroplasty Hip, pelvis, or leg fracture Acute spinal cord injury (< 1 month) Prophylaxis Regimen Total Risk Factor Score Risk Level Prophylaxis Regimen 0-1 Low Early ambulation 2 Moderate Order ONE of the following: *Sequential Compression Device (SCD) *Heparin 5000 units SQ BID 3-4 Higher Order ONE of the following medications: *Heparin 5000 units SQ TID *Enoxaparin/Lovenox 40 mg SQ daily (WT < 150 kg, CrCl > 30 mL/min) *Enoxaparin/Lovenox 30 mg SQ daily (WT < 150 kg, CrCl > 10-29 mL/min) *Enoxaparin/Lovenox 30 mg SQ BID (WT < 150 kg, CrCl > 30 mL/min) AND/OR *Sequential Compression Device (SCD) 5 or more Highest Order ONE of the following medications: *Heparin 5000 units SQ TID (Preferred with Epidurals) *Enoxaparin/Lovenox 40 mg SQ daily (WT < 150 kg, CrCl > 30 mL/min) *Enoxaparin/Lovenox 30 mg SQ daily (WT < 150 kg, CrCl > 10-29 mL/min) *Enoxaparin/Lovenox 30 mg SQ BID (WT < 150 kg, CrCl > 30 mL/min) AND *Sequential Compression Device (SCD) Assessment and Plan Assessment and Plan #1 Atypical chest pain-admitted to chest pain center. Monitor overnight. Instructed to notify RN for any further pain episodes in an attempt to identify an arrhythmia. Discussed likely will discharge in a.m. and follow-up with her deflector operator for CT coronary angiogram. Due to chronic renal insufficiency, will require IV fluids pre-and post testing and this testing already scheduled. #2 History of chronic renal insufficiency-follow up with warper tender as previously instructed #3 History of hypertension-continue amlodipine and losartan, clonidine 0.1 mg q6h PRN Vicki Kwok Jan 02, 2018 15:24
[2018-01-02 17:03] LABS: TROPONIN I LESS THAN 0.02 NG/ML (0.02-0.05)
[2018-01-02] MEDS ORDERED: cloNIDine HCL 0.1 MG TAB PO PRN (17:30)
[2018-01-02] MEDS ORDERED: METOPROLOL TARTRATE 100 MG TAB PO ONE (17:30)
[2018-01-02] MEDS ORDERED: cloNIDine HCL 0.1 MG TAB PO ONE (17:30)
[2018-01-02 19:31] LABS: TROPONIN I LESS THAN 0.02 NG/ML (0.02-0.05)
[2018-01-02] MEDS: SODIUM CHLORIDE 0.9% FLUSH 10 ML FLUSH IV FLUSH SCH (21:00)
[2018-01-03 00:23] VITALS: PULSE 68
[2018-01-03 04:45] VITALS: BP 121/68; PULSE 77; RESP 18; TEMP 97.8; O2SAT 92
[2018-01-03 07:04] VITALS: BP 134/78; PULSE 73; RESP 18; TEMP 97; O2SAT 92
[2018-01-03 07:25] VITALS: O2SAT 94
[2018-01-03] MEDS: METOPROLOL TARTRATE 100 MG TAB PO SCH (09:00)
[2018-01-03] MEDS ORDERED: ASPIRIN 325 MG TAB PO SCH (09:00)
[2018-01-03] MEDS ORDERED: LOSARTAN 50 MG TAB PO SCH (09:00)
[2018-01-03] MEDS: SODIUM CHLORIDE 0.9% FLUSH 10 ML FLUSH IV FLUSH SCH (09:01)
[2018-01-03] MEDS ORDERED: VENTAER INH (09:28)
--- NOTE | 2018-01-03 09:30 | HHI.DCPOC ---
Discharge Care Plan Diagnosis: (1) Atypical chest pain (2) History of congenital anomaly of heart Goals to Promote Your Health * To prevent worsening of your condition and complications * To maintain your health at the optimal level Directions to Meet Your Goals Take your medications as prescribed Follow your dietary instruction Follow activity as directed Keep your appointments as scheduled Take your immunizations and boosters as scheduled If your symptoms worsen call your PCP, if no PCP go to Urgent Care Center or Emergency Room Smoking is Dangerous to Your Health. Avoid second hand smoke Call the 24-hour hour crisis hotline for domestic abuse at Vicki Kwok Jan 03, 2018 09:30
--- NOTE | 2018-01-03 09:41 | HHI.DS ---
Discharge Summary Admission Date Jan 02, 2018 at 14:16 Discharge Date: Jan 03, 2018 Admitting Diagnosis Chest pain (1) Atypical chest pain ICD Codes: R07.89 - Other chest pain Status: Resolved (2) History of congenital anomaly of heart Diagnosis: Secondary ICD Codes: Z87.74 - Personal history of (corrected) congenital malformations of heart and circulatory system Status: Chronic (3) Asthma exacerbation Diagnosis: Principal ICD Codes: J45.901 - Unspecified asthma with (acute) exacerbation Status: Acute (4) Renal insufficiency Diagnosis: Secondary ICD Codes: N28.9 - Disorder of kidney and ureter, unspecified Status: Chronic CBC/BMP: 01/02/18 1115 01/02/18 1115 Significant Findings Laboratory Tests Test 01/02/18 11:15 01/02/18 16:15 01/02/18 18:20 Platelet Count 117 TH/MM3 (150-450) Neutrophils (%) (Auto) 75.1 % (16.0-70.0) Blood Urea Nitrogen 20 MG/DL (7-18) Creatinine 1.62 MG/DL (0.50-1.00) Random Glucose 121 MG/DL (74-106) Chloride Level 109 MEQ/L (98-107) Estimat Glomerular Filtration Rate 37 ML/MIN (>89) Troponin I LESS THAN 0.02 NG/ML LESS THAN 0.02 NG/ML LESS THAN 0.02 NG/ML Total Creatine Kinase 277 U/L (26-192) 281 U/L (26-192) Imaging Last 48 hours Impressions Chest X-Ray 01/02/18 1055 Signed Impressions: Service Date/Time: Tuesday, January 02, 2018 11:22 - CONCLUSION: No acute disease. Te Cunningham MD Hospital Course 32 year old female with history of mitral valve congenial anomaly presented to ER for further evaluation of chest pressure. Admitted to chest pain center. Seen and evaluated by Dr. Graham and monitored on telemetry overnight. Scheduled for ct coronary angiogram January 08 with her racecourse barrier attendant in [place], [place]. Patient requested to be discharged home and states she will follow up with her racecourse barrier attendant as previously scheduled next week. Pt Condition on Discharge: Good Discharge Disposition: Discharge Home Discharge Instructions DIET: Follow Instructions for: Heart Healthy Diet Activities you can perform: Regular-No Restrictions Additional Information Discharged home. Keep scheduled CT coronary arteriogram with racecourse barrier attendant. Discussed possible Loop recorder insertion. Vicki Kwok Jan 03, 2018 09:40
--- NOTE | 2018-01-03 11:03 | EKG ---
Date Performed: 01/02/2018 Time Performed: 18:17:05 PTAGE: 32 years EKG: Sinus rhythm WITH FIRST DEGREE AV BLOCK LEFT ATRIAL ENLARGEMENT RIGHT BUNDLE BRANCH BLOCK LEFT ANTERIOR FASCICULA R BLOCK LEFT VENTRICULAR HYPERTROPHY AND ST-T CHANGE ABNORMAL ECG Since PREVIOUS TRACING , no significant change noted DOCTOR: Hieu Graham Interpretating Date/Time 01/03/2018 11:02:41
--- NOTE | 2018-01-03 11:07 | EKG ---
Date Performed: 01/02/2018 Time Performed: 15:02:35 PTAGE: 32 years EKG: Sinus rhythm POSSIBLE LEFT ATRIAL ENLARGEMENT RIGHT BUNDLE BRANCH BLOCK LEFT ANTERIOR FASCICULAR BLOCK LEFT VENTR ICULAR HYPERTROPHY AND ST-T CHANGE ABNORMAL ECG INTERPRETATION BASED ON A DEFAULT AGE OF 40 YEARS PREVIOUS TRACING : 01/02/2018 10.37 Compared to previous tracing,changes are new. DOCTOR: Hieu Graham Interpretating Date/Time 01/03/2018 11:06:44
--- NOTE | 2018-01-03 11:10 | EKG ---
Date Performed: 01/02/2018 Time Performed: 10:37:55 PTAGE: 32 years EKG: SINUS TACHYCARDIA INTRAVENTRICULAR CONDUCTION DELAY ABNORMAL ECG INTERPRETATION BASED ON A DEFAULT AGE OF 40 YEARS axis rightward. PREVIOUS TRACING : 07/26/2016 20.16 Compared to previous tracing, changes are new. DOCTOR: Hieu Graham Interpretating Date/Time 01/03/2018 11:09:06
== END 2018-01-03 10:58 | disposition home or self-care (01) ==
LOC: NEPC 10:26 → NEDA 14:16 → NEDH 20:08 → NEPFCDU 22:10
DX: R07.9 Chest pain, unspecified (principal); J45.901 Unspecified asthma with (acute) exacerbation; I12.9 Hypertensive chronic kidney disease with stage 1 through stage 4 chronic kidney disease, or unspecified chronic kidney disease; N18.3 Chronic kidney disease, stage 3 (moderate); R94.31 Abnormal electrocardiogram [ECG] [EKG]; R73.03 Prediabetes; E28.2 Polycystic ovarian syndrome; E03.9 Hypothyroidism, unspecified; D69.6 Thrombocytopenia, unspecified; I25.2 Old myocardial infarction; Z95.2 Presence of prosthetic heart valve; Z79.899 Other long term (current) drug therapy; Z87.442 Personal history of urinary calculi; Z82.49 Family history of ischemic heart disease and other diseases of the circulatory system
CPT/HCPCS: 71045; 80048; 82550; 82552; 83735; 84484; 85025; 85379; 85610; 85730; 93005; 94664; 96374; 96375; 96376; 99285; G0378; J2270; J2405; J7512

== ENCOUNTER 2018-02-03 22:24 | Emergency (ER) | payer MEDICARE, OTHER ==
[~2018-02-03] VITALS: Ht 175.3 cm; Wt 135.1 kg
[~2018-02-03 22:24] MED LIST changes: -CEPH-460 PO; -HYDR-3534 PO; -LOSA25TA PO; +LOSA50TA PO; +METO100T PO; -METO50TA PO; -PHEN0.4T PO; +PRED20 PO; +VENTAER INH; -ZOFR4TAB PO
[2018-02-03 22:28] VITALS: BP 196/113; PULSE 105; RESP 20; TEMP 98.6; O2SAT 99
[2018-02-03 23:05] VITALS: BP 196/113; PULSE 105; RESP 20; TEMP 98.6; O2SAT 99
--- NOTE | 2018-02-03 23:11 | PD ---
HPI Chief Complaint: Flank/Kidney Pain Time Seen by Provider: 23:10 Travel History International Travel<30 days: No Contact w/Intl Traveler<30days: No Traveled to known affect area: No History of Present Illness HPI 32-year-old female came to the emergency room with history of bilateral flank pain since past 2 hours. Patient says she has history of polycystic kidney disease and kidney stone. Patient says that she does not have any hematuria dysuria at this time. No history of fever or chills. No history of nausea vomiting. The pain is nonradiating. No aggravating or relieving factors identified. She did try to hydrate herself with lemonade, cranberry juice etc. prior to coming in as per her. Vital signs were within normal limits. [facility] Past Medical History Narrative Medical List of her past medical, surgical, social and family history reviewed from the nursing note Hx Anticoagulant Therapy: No Arthritis: No Asthma: Yes Blood Disorders: No Anxiety: Yes Heart Rhythm Problems: Yes Cancer: No Cardiac Catheterization: No Cardiovascular Problems: Yes High Cholesterol: No Chest Pain: Yes Congestive Heart Failure: No Cerebrovascular Accident: No Diabetes: No Diminished Hearing: No Endocrine: Yes (SOME THYROID ISSUES) Gastrointestinal Disorders: No Genitourinary: Yes (CHRONIC KIDNEY INFECTIONS) Headaches: No Hypertension: Yes Immune Disorder: No Implanted Vascular Access Dvce: No Kidney Stones: Yes Musculoskeletal: No Neurologic: Yes Psychiatric: No Reproductive: Yes (IRREGULAR PERIODS) Respiratory: Yes (ASTHMA CHILD) Immunizations Current: Yes Migraines: Yes Pneumonia: Yes Seizures: No Thyroid Disease: Yes (HYPOTHYROIDISM/NOT ON MEDICATION) Menopausal: No : 0 Para: 0 Miscarriage: 0 Ovarian Cysts: Yes (has PCOS) Past Surgical History Abdominal Surgery: Yes (PART OF RT KIDNEY REMOVED 1997- for PCKD) Cardiac Surgery: Yes (MITRAL VALVE REPAIR) Coronary Artery Bypass Graft: Yes (CABG X1 1985 OR 1986?) Genitourinary Surgery: Yes (PARTIAL NEPHRECTOMY RIGHT, URETERS REIMPLANTED) Gynecologic Surgery: Yes (RIGHT TOP LOBE OF KIDNEY REMOVED) Valve Replacement: Yes (2 OPEN HEARTS FOR VALVE SURGERY AGE 2 months) Other Surgery: Yes (RIGHT TOP LOBE OF KIDNEY REMOVED) Family History Family Hypercholesterolemia: Yes (FATHER) Social History Alcohol Use: No Tobacco Use: No Substance Use: No Allergies-Medications (Allergen,Severity, Reaction): Coded Allergies: penicillin G (Unverified Allergy, Intermediate, HIVES, 02/03/18) ketorolac (Unverified Adverse Reaction, Severe, 02/03/18) KIDNEY FAILURE Comments List of her allergies reviewed from the nursing note Reported Meds & Prescriptions Reported Meds & Active Scripts Active Ventolin Hfa 18 GM Inh (Albuterol Sulfate) 90 Mcg/Act Aer 2 Puff INH Q4H PRN Amlodipine (Amlodipine Besylate) 10 Mg Tab 10 Mg PO DAILY Reported Metoprolol Tartrate 50 Mg Tab 50 Mg PO HS Losartan (Losartan Potassium) 50 Mg Tab 50 Mg PO DAILY Metoprolol Tartrate 100 Mg Tab 100 Mg PO BID Narrative Medication List of her home medications reviewed from the nursing note Review of Systems Except as stated in HPI: all other systems reviewed are Neg Genitourinary: Positive: Flank Pain Physical Exam Narrative GENERAL: Awake, alert, morbidly obese, no obvious distress SKIN: Focused skin assessment warm/dry. HEAD: Atraumatic. Normocephalic. EYES: Pupils equal and round. No scleral icterus. No injection or drainage. ENT: No nasal bleeding or discharge. Mucous membranes pink and moist. NECK: Trachea midline. No JVD. CARDIOVASCULAR: Regular rate and rhythm. No murmur appreciated. RESPIRATORY: No accessory muscle use. Clear to auscultation. Breath sounds equal bilaterally. GASTROINTESTINAL: Abdomen soft, non-tender, nondistended. Hepatic and splenic margins not palpable. MUSCULOSKELETAL: No obvious deformities. No clubbing. No cyanosis. No edema. NEUROLOGICAL: Awake and alert. No obvious cranial nerve deficits. Motor grossly within normal limits. Normal speech. PSYCHIATRIC: Appropriate mood and affect; insight and judgment normal. Data Data Last Documented VS Vital Signs Date Time Temp Pulse Resp B/P (MAP) Pulse Ox O2 Delivery O2 Flow Rate FiO2 02/04/18 01:58 82 18 187/112 (137) 96 02/04/18 01:00 Room Air 02/03/18 23:05 98.6 Orders Orders Complete Blood Count With Diff (02/03/18 23:14) Basic Metabolic Panel (Bmp) (02/03/18 23:14) Urinalysis - C+S If Indicated (02/03/18 23:14) Ecg Monitoring (02/03/18 23:14) Iv Access Insert/Monitor (02/03/18 23:14) Morphine Inj (Morphine Inj) (02/03/18 23:15) Sodium Chloride 0.9% Flush (Ns Flush) (02/03/18 23:15) Sodium Chlor 0.9% 1000 Ml Inj (Ns 1000 M (02/03/18 23:14) Ct Abd/Pel W/O Iv Contrast (02/04/18 ) Ed Urine Pregnancytest Poc (02/04/18 00:16) Ed Discharge Order (02/04/18 01:34) Labs Laboratory Tests Test 02/03/18 23:25 White Blood Count 8.6 TH/MM3 Red Blood Count 4.87 MIL/MM3 Hemoglobin 13.5 GM/DL Hematocrit 40.9 % Mean Corpuscular Volume 84.1 FL Mean Corpuscular Hemoglobin 27.7 PG Mean Corpuscular Hemoglobin Concent 32.9 % Red Cell Distribution Width 13.7 % Platelet Count 118 TH/MM3 Mean Platelet Volume 9.6 FL Neutrophils (%) (Auto) 72.5 % Lymphocytes (%) (Auto) 20.5 % Monocytes (%) (Auto) 5.3 % Eosinophils (%) (Auto) 1.2 % Basophils (%) (Auto) 0.5 % Neutrophils # (Auto) 6.2 TH/MM3 Lymphocytes # (Auto) 1.8 TH/MM3 Monocytes # (Auto) 0.5 TH/MM3 Eosinophils # (Auto) 0.1 TH/MM3 Basophils # (Auto) 0.0 TH/MM3 CBC Comment DIFF FINAL Differential Comment Urine Color YELLOW Urine Turbidity CLEAR Urine pH 6.0 Urine Specific Aristes LESS/EQUAL 1.005 Urine Protein 30 mg/dL Urine Glucose (UA) NEG mg/dL Urine Ketones NEG mg/dL Urine Occult Blood SMALL Urine Nitrite NEG Urine Bilirubin NEG Urine Urobilinogen 0.2 MG/DL Urine Leukocyte Esterase SMALL Urine RBC 0-3 /hpf Urine WBC 3-5 /hpf Urine Squamous Epithelial Cells 6-8 /hpf Microscopic Urinalysis Comment CULT NOT INDICATED Blood Urea Nitrogen 21 MG/DL Creatinine 1.60 MG/DL Random Glucose 144 MG/DL Calcium Level 9.0 MG/DL Sodium Level 138 MEQ/L Potassium Level 3.6 MEQ/L Chloride Level 108 MEQ/L Carbon Dioxide Level 22.8 MEQ/L Anion Gap 7 MEQ/L Estimat Glomerular Filtration Rate 37 ML/MIN [facility] Medical Decision Making Medical Screen Exam Complete: Yes Emergency Medical Condition: Yes Medical Record Reviewed: Yes Differential Diagnosis Renal colic, UTI, musculoskeletal pain Narrative Course 12:16 AM blood test results are back and BMP shows elevated BUN and creatinine which patient says she has history of stage III kidney disease from her polycystic kidney disease. UA shows mild blood. Awaiting for the CT scan to be done and resulted. Patient was treated for pain. Procedures EKG Prior to Arrival: No Diagnosis Primary Impression: Musculoskeletal pain Additional Impressions: Polycystic kidney disease Renal insufficiency Referrals: [facility] [address] Additional Instructions: Follow-up with primary care. Take Tylenol for the pain. Apply warm compresses alternating with cold compresses for the pain. Disposition: 01 DISCHARGE HOME Condition: Stable Jimmy Nieves MD February 03, 2018 23:11
[2018-02-03] MEDS ORDERED: SODIUM CHLOR 0.9% 1000 ML INJ 1,000 ML IV ONE (23:14)
[2018-02-03] MEDS ORDERED: SODIUM CHLORIDE 0.9% FLUSH 10 ML FLUSH IVF PRN (23:15)
[2018-02-03] MEDS ORDERED: MORPHINE SULFATE 4 MG/ML INJ IV PUSH ONE (23:15)
[2018-02-03] MEDS ORDERED: METO50TA PO (23:30)
[2018-02-03 23:39] LABS: BILIRUBIN, URINE NEG (NEG); BLOOD, URINE SMALL (NEG); GLUCOSE,URINE NEG (NEG); KETONE, URINE NEG (NEG); NITRITE,URINE NEG (NEG); URINE COLOR YELLOW (YELLW/STRAW); URINE LEUKOCYTE ESTERASE SMALL (NEG)
[2018-02-03 23:41] LABS: AUTOMATED NEUTROPHIL # 6.2 TH/MM3 (1.8-7.7); BASOPHIL % 0.5 % (0.0-2.0); EOSINOPHIL # 0.1 TH/MM3 (0-0.4); EOSINOPHIL % 1.2 % (0.0-4.0); HEMATOCRIT 40.9 % (35.0-46.0); HEMOGLOBIN 13.5 GM/DL (11.6-15.3); LYMPH % 20.5 % (9.0-44.0); LYMPHOCYTE # 1.8 TH/MM3 (1.0-4.8); MEAN CELL VOLUME 84.1 FL (80.0-100.0); MEAN CORPUSCULAR HEMOGLOBIN 27.7 PG (27.0-34.0); MEAN CORPUSCULAR HGB CONC 32.9 % (32.0-36.0); MEAN PLATELET VOLUME 9.6 FL (7.0-11.0); MONO % 5.3 % (0.0-8.0); MONOCYTE # 0.5 TH/MM3 (0-0.9); NEUT % 72.5 % (16.0-70.0); PLATELET COUNT 118 TH/MM3 (150-450); RED BLOOD COUNT 4.87 MIL/MM3 (4.00-5.30); RED CELL DISTRIBUTION WIDTH 13.7 % (11.6-17.2); WHITE BLOOD COUNT 8.6 TH/MM3 (4.0-11.0)
[2018-02-03 23:44] LABS: RBC, URINE 0-3 /hpf (0-3)
[2018-02-03 23:50] VITALS: BP 163/111; PULSE 85; RESP 18; O2SAT 97
[2018-02-03 23:53] LABS: BICARBONATE 22.8 MEQ/L (21.0-32.0)
[2018-02-03 23:56] LABS: CREATININE 1.6 MG/DL (0.50-1.00)
[2018-02-04 01:00] VITALS: BP 186/111; PULSE 77; RESP 18; O2SAT 97
--- NOTE | 2018-02-04 01:34 | RADRPT ---
EXAM DATE: 02/04/2018 1:09 AM EDT AGE/SEX: 32 years / Female INDICATIONS: Bilateral flank pain. CLINICAL DATA: This is the patient's initial encounter. Patient reports that signs and symptoms have been present for 1 day and indicates a pain score of 7/10. MEDICAL/SURGICAL HISTORY: Hypertension. Renal calculi. Renal failure, chronic. Polycystic ki dney disease. . Partial right nephrectomy. RADIATION DOSE: 27.96 CTDI (mGy) ; Patient body habitus ; High dose protocol COMPARISON: [facility], CT ABDOMEN & PELVIS W/O CONTRAST, 01/03/2016. . TECHNIQUE: Multiple contiguous axial images were obtained through the abdomen. Images were obtained using multiple row detector helical technique. Using dose reduction techniques, radiation dose was ke pt as low as reasonably achievable to obtain optimal diagnostic quality images. FINDINGS: Lower Lungs: The visualized lower lungs are clear. Liver: The liver has a homogeneous density without space-occupying lesion. There is no dilation of th e biliary tree. Mild hepatic steatosis is again noted. Spleen: Homogeneous density without enlargement. Pancreas: Unremarkable without mass or calcification. Kidneys: The kidneys remain prominent with numerous bilateral well-defined cystic structures again n oted. There are multiple tiny bilateral areas of calcification which are not significantly changed. T here is no distinct solid mass. There is no hydronephrosis. Portions of the ureters are unremarkable. Adrenal Glands: Unremarkable. Aorta: The aorta and proximal iliac vessels are grossly unremarkable without aneurysmal dilation. Bowel/Mesentery: No oral contrast was given limiting the sensitivity. There are multiple diverticuli greatest in the sigmoid colon. There is normal appendix. The bowel loops are grossly unremarkable. Th e cecum and sigmoid colon have a normal configuration. Abdominal Wall: Intact. Retroperitoneum: No evidence of adenopathy in the retrocrural, para-aortic, or deep pelvic regions. Bladder: Contours are smooth. Reproductive Organs: No abnormal masses or calcifications seen. Inguinal: The inguinal region is unremarkable without evidence of adenopathy. Bony Structures: Unremarkable. CONCLUSION: 1. The kidneys are stable in appearance with tiny calcifications again noted and no hydronephrosis. Adult polycystic kidney disease is again noted. 2. Mild hepatic steatosis is again present. 3. Mild diverticulosis. Electronically signed by: Te Cunningham MD 02/04/2018 1:33 AM EDT
[2018-02-04 01:58] VITALS: BP 187/112
== END 2018-02-04 02:07 | disposition home or self-care (01) ==
LOC: PHED 22:24
DX: M79.1 Myalgia (principal); Q61.2 Polycystic kidney, adult type; N28.9 Disorder of kidney and ureter, unspecified; K76.0 Fatty (change of) liver, not elsewhere classified; I10 Essential (primary) hypertension; J45.909 Unspecified asthma, uncomplicated; E03.9 Hypothyroidism, unspecified; Z95.2 Presence of prosthetic heart valve; Z87.442 Personal history of urinary calculi; Z88.0 Allergy status to penicillin; Z88.8 Allergy status to other drugs, medicaments and biological substances; Z79.899 Other long term (current) drug therapy
CPT/HCPCS: 74176; 80048; 81001; 84703; 85025; 96361; 96374; 99284; J2270; J7030

== ENCOUNTER 2018-02-18 08:42 | Emergency (ER) | payer MEDICARE, OTHER ==
[~2018-02-18] VITALS: Ht 175.3 cm; Wt 133.0 kg
[~2018-02-18 08:42] MED LIST changes: +METO50TA PO; -PRED20 PO
[2018-02-18 08:47] VITALS: BP 206/112; PULSE 117; RESP 16; TEMP 98.8; O2SAT 95
[2018-02-18] MEDS ORDERED: HYDROmorphone HCL PF 0.5 MG/0.5 ML SYRINGE IV PUSH ONE (09:00)
[2018-02-18 09:11] VITALS: BP 176/96; PULSE 105; RESP 18; O2SAT 95
[2018-02-18 09:14] LABS: BILIRUBIN, URINE NEG (NEG); BLOOD, URINE LARGE (NEG); GLUCOSE,URINE NEG (NEG); KETONE, URINE NEG (NEG); NITRITE,URINE POS (NEG); URINE COLOR YELLOW (YELLW/STRAW); URINE LEUKOCYTE ESTERASE LARGE (NEG)
[2018-02-18 09:20] LABS: AMORPHOUS SEDIMENT, URINE MOD; BACTERIA, URINE FEW /hpf; WHITE BLOOD CELL CLUMPS MOD
[2018-02-18] MEDS ORDERED: ONDANSETRON HCL 4 MG/2 ML VIAL IV PUSH ONE (09:30)
[2018-02-18] MEDS ORDERED: SODIUM CHLOR 0.9% 1000 ML INJ 1,000 ML IV ONE ×2 (09:30→10:30)
[2018-02-18] MEDS ORDERED: HYDROmorphone HCL PF 1 MG/ML VIAL IV PUSH ONE (09:30)
[2018-02-18] MEDS ORDERED: cefTRIAXone INJ 2,000 MG in SODIUM CHLORIDE 0.9% INJ 100 ML IV ONE (09:45)
[2018-02-18 09:59] LABS: AUTOMATED NEUTROPHIL # 7.6 TH/MM3 (1.8-7.7); BASOPHIL % 0.3 % (0.0-2.0); EOSINOPHIL # 0.1 TH/MM3 (0-0.4); EOSINOPHIL % 0.7 % (0.0-4.0); HEMOGLOBIN 14.1 GM/DL (11.6-15.3); LYMPH % 11.7 % (9.0-44.0); LYMPHOCYTE # 1.1 TH/MM3 (1.0-4.8); MEAN CELL VOLUME 83.8 FL (80.0-100.0); MEAN CORPUSCULAR HEMOGLOBIN 28.1 PG (27.0-34.0); MEAN CORPUSCULAR HGB CONC 33.6 % (32.0-36.0); MEAN PLATELET VOLUME 10.7 FL (7.0-11.0); MONO % 5.8 % (0.0-8.0); MONOCYTE # 0.5 TH/MM3 (0-0.9); NEUT % 81.5 % (16.0-70.0); PLATELET COUNT 135 TH/MM3 (150-450); RED BLOOD COUNT 5.02 MIL/MM3 (4.00-5.30); RED CELL DISTRIBUTION WIDTH 14.5 % (11.6-17.2); WHITE BLOOD COUNT 9.3 TH/MM3 (4.0-11.0)
[2018-02-18 10:07] LABS: CALCIUM 8.5 MG/DL (8.5-10.1)
[2018-02-18 10:08] LABS: ALBUMIN 3.6 GM/DL (3.4-5.0); BLOOD UREA NITROGEN 22 MG/DL (7-18); GLUCOSE,RANDOM 129 MG/DL (74-106)
[2018-02-18 10:11] LABS: ALT (GPT) 71 U/L (10-53); AST (GOT) 36 U/L (15-37); GLOMERULAR FILTRATION RATE 37 ML/MIN (>89)
[2018-02-18 10:13] LABS: TOTAL BILIRUBIN ADULT 0.5 MG/DL (0.2-1.0); TOTAL PROTEIN 7.6 GM/DL (6.4-8.2)
[2018-02-18 10:14] LABS: ALKALINE PHOSPHATASE 55 U/L (45-117)
[2018-02-18 10:17] LABS: CHLORIDE 111 MEQ/L (98-107); SODIUM (NA) 142 MEQ/L (136-145)
[2018-02-18] MEDS ORDERED: HYDR-3288 PO (10:47)
[2018-02-18] MEDS ORDERED: CIPR-9 PO (10:47)
[2018-02-18] MEDS ORDERED: ZOFR4TAB3 SL (10:47)
[2018-02-18] MEDS ORDERED: PHEN0.4T PO (10:47)
--- NOTE | 2018-02-18 10:47 | PD ---
HPI Chief Complaint: Complaint Time Seen by Provider: 08:52 Travel History International Travel<30 days: No Contact w/Intl Traveler<30days: No Traveled to known affect area: No History of Present Illness HPI This 32-year-old female is complaining of left flank pain. Been having this pain for about a day. She has had some nausea. She has a history of polycystic kidney disease. She was here last week and had a CT scan which was negative for stone. She says the pain is quite severe at times. Is not aware of fever or chills. She has a history of urinary tract infection PFSH Past Medical History Hx Anticoagulant Therapy: No Arthritis: No Asthma: Yes Blood Disorders: No Anxiety: Yes Heart Rhythm Problems: Yes Cancer: No Cardiac Catheterization: No Cardiovascular Problems: Yes (htn on meds) High Cholesterol: No Chest Pain: Yes Congestive Heart Failure: No Cerebrovascular Accident: No Diabetes: No Diminished Hearing: No Endocrine: Yes (SOME THYROID ISSUES) Gastrointestinal Disorders: No Genitourinary: Yes (CHRONIC KIDNEY INFECTIONS) Headaches: No Hypertension: Yes Immune Disorder: No Implanted Vascular Access Dvce: No Kidney Stones: Yes Musculoskeletal: No Neurologic: Yes Psychiatric: No Reproductive: Yes (IRREGULAR PERIODS) Respiratory: Yes (ASTHMA CHILD) Immunizations Current: Yes Migraines: Yes Pneumonia: Yes Seizures: No Thyroid Disease: Yes (HYPOTHYROIDISM/NOT ON MEDICATION) Influenza Vaccination: No ?: Not LMP: 02/10/18 Menopausal: No : 0 Para: 0 Miscarriage: 0 Ovarian Cysts: Yes (has PCOS) Past Surgical History Abdominal Surgery: Yes (PART OF RT KIDNEY REMOVED 1997- for PCKD) Cardiac Surgery: Yes (MITRAL VALVE REPAIR) Coronary Artery Bypass Graft: Yes (CABG X1 1985 OR 1986?) Genitourinary Surgery: Yes (PARTIAL NEPHRECTOMY RIGHT, URETERS REIMPLANTED) Gynecologic Surgery: Yes (RIGHT TOP LOBE OF KIDNEY REMOVED) Valve Replacement: Yes (2 OPEN HEARTS FOR VALVE SURGERY AGE 2 months) Other Surgery: Yes (RIGHT TOP LOBE OF KIDNEY REMOVED) Family History Family Myocardial Infarction: Yes (FATHER) Family Hypercholesterolemia: Yes (FATHER) Social History Alcohol Use: No Tobacco Use: No Substance Use: No Allergies-Medications (Allergen,Severity, Reaction): Coded Allergies: penicillin G (Unverified Allergy, Intermediate, HIVES, 02/18/18) ketorolac (Unverified Adverse Reaction, Severe, 02/18/18) KIDNEY FAILURE Reported Meds & Prescriptions Reported Meds & Active Scripts Active Ventolin Hfa 18 GM Inh (Albuterol Sulfate) 90 Mcg/Act Aer 2 Puff INH Q4H PRN Amlodipine (Amlodipine Besylate) 10 Mg Tab 10 Mg PO DAILY Reported Metoprolol Tartrate 50 Mg Tab 50 Mg PO HS Losartan (Losartan Potassium) 50 Mg Tab 50 Mg PO DAILY Metoprolol Tartrate 100 Mg Tab 100 Mg PO BID Review of Systems Except as stated in HPI: all other systems reviewed are Neg General / Constitutional: No: Fever, Chills Eyes: No: Diploplia, Blurred Vision HENT: No: Headaches, Vertigo Cardiovascular: No: Chest Pain or Discomfort Respiratory: No: Cough, Shortness of Breath Gastrointestinal: Positive: Nausea, Vomiting Genitourinary: Positive: Flank Pain Musculoskeletal: No: Myalgias, Arthralgias Skin: No Rash, No Itching Neurologic: No: Weakness, Dizziness Psychiatric: No: Anxiety, Depression Hematologic/Lymphatic: No: Easy Bruising Physical Exam Narrative GENERAL: Well-developed female. She appears uncomfortable with pain SKIN: Focused skin assessment warm/dry. HEAD: Atraumatic. Normocephalic. EYES: Pupils equal and round. No scleral icterus. No injection or drainage. ENT: No nasal bleeding or discharge. Mucous membranes pink and moist. NECK: Trachea midline. No JVD. CARDIOVASCULAR: Regular rate and rhythm. No murmur appreciated. RESPIRATORY: No accessory muscle use. Clear to auscultation. Breath sounds equal bilaterally. GASTROINTESTINAL: Abdomen soft, non-tender, nondistended. Hepatic and splenic margins not palpable. There is left CVA tenderness MUSCULOSKELETAL: No obvious deformities. No clubbing. No cyanosis. No edema. NEUROLOGICAL: Awake and alert. No obvious cranial nerve deficits. Motor grossly within normal limits. Normal speech. PSYCHIATRIC: Appropriate mood and affect; insight and judgment normal. Data Data Last Documented VS Vital Signs Date Time Temp Pulse Resp B/P (MAP) Pulse Ox O2 Delivery O2 Flow Rate FiO2 02/18/18 09:46 18 02/18/18 09:11 105 176/96 (122) 95 Room Air 02/18/18 08:47 98.8 Orders Orders Ed Urine Pregnancytest Poc (02/18/18 08:51) Urinalysis - C+S If Indicated (02/18/18 08:51) Urine Culture (02/18/18 08:55) Complete Blood Count With Diff (02/18/18 09:19) Comprehensive Metabolic Panel (02/18/18 09:19) Sodium Chlor 0.9% 1000 Ml Inj (Ns 1000 M (02/18/18 09:30) Ondansetron Inj (Zofran Inj) (02/18/18 09:30) Hydromorphone Pf Inj (Dilaudid Pf Inj) (02/18/18 09:30) Hydromorphone Pf Inj (Dilaudid Pf Inj) (02/18/18 09:00) Ceftriaxone Inj (Rocephin Inj) (02/18/18 09:45) Sodium Chlor 0.9% 1000 Ml Inj (Ns 1000 M (02/18/18 10:30) Labs Laboratory Tests Test 02/18/18 08:55 02/18/18 09:10 Urine Collection Type CLEAN CATCH Urine Color YELLOW Urine Turbidity CLOUDY Urine pH 6.0 Urine Specific [place] 1.010 Urine Protein 100 mg/dL Urine Glucose (UA) NEG mg/dL Urine Ketones NEG mg/dL Urine Occult Blood LARGE Urine Nitrite POS Urine Bilirubin NEG Urine Urobilinogen 0.2 MG/DL Urine Leukocyte Esterase LARGE Urine RBC 4-9 /hpf Urine WBC 25-49 /hpf Urine WBC Clumps MOD Urine Squamous Epithelial Cells 6-8 /hpf Urine Amorphous Sediment MOD Urine Bacteria FEW /hpf Microscopic Urinalysis Comment CULTURE INDICATED Urine Collection Time 0855 White Blood Count 9.3 TH/MM3 Red Blood Count 5.02 MIL/MM3 Hemoglobin 14.1 GM/DL Hematocrit 42.0 % Mean Corpuscular Volume 83.8 FL Mean Corpuscular Hemoglobin 28.1 PG Mean Corpuscular Hemoglobin Concent 33.6 % Red Cell Distribution Width 14.5 % Platelet Count 135 TH/MM3 Mean Platelet Volume 10.7 FL Neutrophils (%) (Auto) 81.5 % Lymphocytes (%) (Auto) 11.7 % Monocytes (%) (Auto) 5.8 % Eosinophils (%) (Auto) 0.7 % Basophils (%) (Auto) 0.3 % Neutrophils # (Auto) 7.6 TH/MM3 Lymphocytes # (Auto) 1.1 TH/MM3 Monocytes # (Auto) 0.5 TH/MM3 Eosinophils # (Auto) 0.1 TH/MM3 Basophils # (Auto) 0.0 TH/MM3 CBC Comment DIFF FINAL Differential Comment Blood Urea Nitrogen 22 MG/DL Creatinine 1.60 MG/DL Random Glucose 129 MG/DL Total Protein 7.6 GM/DL Albumin 3.6 GM/DL Calcium Level 8.5 MG/DL Alkaline Phosphatase 55 U/L Aspartate Amino Transf (AST/SGOT) 36 U/L Alanine Aminotransferase (ALT/SGPT) 71 U/L Total Bilirubin 0.5 MG/DL Sodium Level 142 MEQ/L Potassium Level 3.8 MEQ/L Chloride Level 111 MEQ/L Carbon Dioxide Level 21.0 MEQ/L Anion Gap 10 MEQ/L Estimat Glomerular Filtration Rate 37 ML/MIN MDM Medical Decision Making Medical Screen Exam Complete: Yes Emergency Medical Condition: Yes Medical Record Reviewed: Yes Differential Diagnosis Differential includes renal colic, pyelonephritis, gastroenteritis Narrative Course Patient had a CT scan recently some reluctant to repeat this. Her urine does show white cells consistent with urinary tract infection. She has been given Rocephin and will be released with prescriptions for Cipro, Hiram, Zofran and Pyridium Diagnosis Primary Impression: Acute pyelonephritis Scripts Phenazopyridine (Pyridium) 100 Mg Tab 100 MG PO Q8H Y for DYSURIA, #20 TAB 0 Refills Prov: Guanaco Palmer MD 02/18/18 Ondansetron Odt (Zofran Odt) 4 Mg Tab 4 MG SL Q6HR Y for Nausea/Vomiting, #10 TAB 0 Refills Prov: Guanaco Palmer MD 02/18/18 Hydrocodone-Acetaminophen (Hiram) 7.5-325 mg Tab 1 TAB PO Q4H Y for PAIN, #10 TAB 0 Refills Prov: Guanaco Palmer MD 02/18/18 Ciprofloxacin (Cipro) 500 Mg Tab 500 MG PO BID for Infection for 10 Days, #20 TAB 0 Refills Prov: Guanaco Palmer MD 02/18/18 Disposition: 01 DISCHARGE HOME Condition: Stable Guanaco Palmer MD Feb 18, 2018 10:47
[2018-02-18 11:20] VITALS: BP 167/93; PULSE 79; RESP 16; O2SAT 95
== END 2018-02-18 11:32 | disposition home or self-care (01) ==
LOC: PHED 08:42
DX: N10 Acute pyelonephritis (principal); B96.20 Unspecified Escherichia coli [E. coli] as the cause of diseases classified elsewhere; Q61.3 Polycystic kidney, unspecified; J45.909 Unspecified asthma, uncomplicated; F41.9 Anxiety disorder, unspecified; I10 Essential (primary) hypertension; E03.9 Hypothyroidism, unspecified; E28.2 Polycystic ovarian syndrome; Z95.1 Presence of aortocoronary bypass graft
CPT/HCPCS: 80053; 81001; 84703; 85025; 87077; 87086; 87186; 96361; 96365; 96375; 99284; J0696; J1170; J2405; J7030